=== PATIENT | female | born 1960 | race Caucasian/White ===

== ENCOUNTER 2018-10-15 11:55 | Emergency (ER) | payer OTHER | END 2018-10-15 15:59 | disposition home or self-care (01) | LOC: FTE 11:55 | DX: S92.355A Nondisplaced fracture of fifth metatarsal bone, left foot, initial encounter for closed fracture (principal); W01.0XXA Fall on same level from slipping, tripping and stumbling without subsequent striking against object, initial encounter; Y92.512 Supermarket, store or market as the place of occurrence of the external cause | CPT/HCPCS: 73610; 73630-LT; 99283-25 ==